=== PATIENT | male | born 1950 | race Caucasian/White ===

== ENCOUNTER 2019-05-19 06:38 | Day surgery (SDC) | payer OTHER ==
[~2019-05-19] VITALS: Ht 177.8 cm; Wt 97.5 kg
[~2019-05-19 06:38] MED LIST: ASPIRIN EC325 M1 PO; CARBAMAZEPINE300 MG PO; COSOPT OCUMETER10 M1 OPHTHALMIC; DULOXETINE HCL30 MG PO; LOSARTAN POTASS50 MG PO; LOVASTATIN40 MG PO; OMEPRAZOLE40 MG PO; PHENYTOIN SODI100 M3 PO; PRED FORTE 1% EY5 M1 OPHTHALMIC
[2019-05-19 07:19] VITALS: BP 164/89
--- NOTE | 2019-05-20 06:21 | O ---
[facility] [place] [address] OPERATIVE REPORT Name: RICH SANTANA Room #: 150-2 [facility] M.R.#: [id number] Admission: 05/19/19 Attend Phys: Phong Gipson MD Discharge: Date of : 50 Report #: [id number] THIS REPORT FOR: cc: Tatiana Lynch MD, Lin W. MD White, William L. 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 PROCEDURE: Excision of recurrent squamous cell carcinoma of right upper lid, right lower lid, right medial canthus, and right orbit with musculocutaneous flap repair of the right lower lid based on the temporalis muscle, myocutaneous flap repair of the right upper lid, right medial canthopexy, and full-thickness skin graft from left upper lid to right medial canthus. SURGEON: Phong Gipson MD SNAKE CHARMER: None. ANESTHESIA: General. COMPLICATIONS: None. 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 He presents today for excision of the tumor with frozen sections and subsequent repair of that ensuing defect. Informed consent was obtained to include but not limited to the potential risks for loss of vision, bleeding, infection, failure to improve the problem, need for additional treatment or surgery, and the very real understanding that in all likelihood, this disease process will eventually in loss of his eye and all of his orbital soft tissue. With that understanding, he agreed to proceed. [address] [address] OPERATIVE REPORT Name: RICH SANTANA Room #: 150-2 [facility] M.R.#: [id number] Admission: 05/19/19 Attend Phys: Phong Gipson MD Discharge: Date of : 50 Report #: [id number] DESCRIPTION OF PROCEDURE: The patient was taken to the operating room where general anesthesia was administered. The right medial canthal area including the right upper lid, the right lower lid, the right medial canthus, and the right lateral canthus in addition to the right infratemporal fossa were anesthetized with Xylocaine with epinephrine mixed with Marcaine and Wydase. The patient was subsequently prepped and draped in the usual sterile fashion. A fine-tip skin marking pen was then utilized to outline the tumor margins around the medial right upper lid around the medial canthus and on to the medial right lower lid. Incisions were then made perpendicularly across the right upper lid and the right lower lid and drawn to the arcus marginalis. The dissection was then carried down on to the periosteum medial cutting into the lacrimal apparatus, which was ultimately sacrificed. This tissue was then placed on the back table to use as the main tumor specimen. An additional section of the stump now with the upper lid and the right lower lid were taken as separate specimens. An additional deeper tissue was taken in the medial orbit extending down to the area of the medial rectus muscle posterior to the lacrimal apparatus. Hemostasis was then achieved. The pathologist snapped those frozen specimens and found that the right upper lid and the right lower lid were still positive. She felt that the orbital tissue while not completely normal, was not neoplastic. An additional section of the medial right upper lid and the right lower lid were then taken. These were labeled for the pathologist, which she took and froze. She analyzed these specimens and found that the margin appeared to be clear of invasive cancer. Attention was then turned to repair of the ensuing defect. Most of the right lower lid was gone and over half of the right upper lid was gone. The reconstructive options were contemplated. An incision was then made at the lateral canthus not including the canthus down to the periosteum and a canthal release, releasing both the upper lid and the lower lid, was accomplished. Hemostasis was achieved through this area. The lower lid then had considerable more mobility for a flap to be undertaken in the right upper lid could also be drawn out from a separate flap. A larger relaxing incision was then made superotemporally for the lower lid that was drawn back into the infratemporal fossa. The lacrimal gland was present in this dissection and was dissected free from the underlying flap. The temporalis muscle was for the flap to be advanced and hemostasis re-achieved. The flap was then advanced into its bed in the lower lid, but not secured yet. Two separate 5-0 Vicryl sutures were used to accomplish a medial canthopexy securing the upper and lower lids. These sutures were passed in a double-arm mattress fashion to the deepest most tissue present in the medial right orbit. [facility] [address] [place] [address] OPERATIVE REPORT Name: RICH SANTANA Room #: 150-2 [facility]#: [id number] Admission: 05/19/19 Attend Phys: Phong Gipson MD Discharge: Date of : 50 Report #: [id number] The right lower lid musculocutaneous flap then was advanced and secured with the interrupted 5-0 Vicryl sutures deep. The lateral incision was then closed with interrupted Vicryl sutures deep and then 6-0 plain gut sutures superficially extending back towards the ear. A preplaced 5-0 double-arm Vicryl suture was left to accomplish a canthopexy with the right upper lid. A separate myocutaneous flap was then developed superotemporally drawn down based on the brow. Relaxing incisions made and it was drawn into its position. The 5-0 Vicryl sutures were then secured to accomplish the medial canthopexy following which the myocutaneous flap was secured with interrupted buried Vicryl sutures deep and then 6-0 plain gut sutures more superficially. This left a defect in the right medial canthus. A fine-tip skin marking pen was then utilized to outline some redundant skin in the lateral most portion of the left upper lid that could be used as a skin graft. The incisions were then made with a Claudia scissor and a full-thickness skin graft harvested. It was defatted. That donor site was closed with interrupted 6-0 chromic sutures and 6-0 plain gut sutures after the field was dried. The full-thickness skin graft was then defatted and secured into its bed in the right medial canthus initially with a double-arm mattress 7-0 Vicryl suture drawing it into the deepest most portion of the area of the defect. The margins were then closed with interrupted 7-0 Vicryl sutures and 6-0 plain gut sutures. The wounds were then cleaned and dressed with multiple Telfa pad pieces in the medial canthus to hold the full-thickness skin graft flat. An eye pad was then placed on top of Telfa pads, which were secured with silk tape and Mastisol. Erythromycin ointment had been applied to all the incisions prior to placement of the dressing. The patient was subsequently transported to the recovery area having tolerated the procedure well with no anesthetic or operative complications being noted. <ELECTRONICALLY SIGNED> By: Phong Gipson MD 05/20/19 0621 [id number] Phong Gipson MD /nt
--- NOTE | 2019-05-20 17:07 | PATH ---
[facility] [place] [address] PATHOLOGY RPT PROCEDURE Name: RICH SANTANA Room #: 150-2 [facility] M.R.#: [id number] Admission: 05/19/19 Date of : 50 Discharge: Report #: [id number] Path Case #: [id number] [facility] Accession Number: [id number] . 01 Material submitted: . PART A: lid - LATERAL RIGHT UPPER LID NEW MARGIN. Modifiers: right, lateral PART B: lid - LATERAL RIGHT LOWER LID NEW MARGIN. Modifiers: lateral, right PART C: canthus - DEEP MEDIAL CANTHUS MARGIN. Modifiers: medial PART D: lid - LATERAL RIGHT UPPER LID ADDITIONAL MARGIN. Modifiers: lateral, right PART E: lid - LATERAL RIGHT LOWER LID ADDITIONAL MARGIN. Modifiers: lateral, right PART F: lid - RIGHT UPPER LID SQUAMOUS CELL CARCINOMA MAIN BODY. Modifiers: right, upper . 02 Frozen section diagnosis: . FROZEN SECTION DIAGNOSIS: (by Dr. Cecilia Carson) . FSA1, Right upper lid new margin, biopsy: - POSITIVE FOR MALIGNANCY. . FSB1, Right lower lid new margin, biopsy: - POSITIVE FOR MALIGNANCY. . FSC1, Deep medial canthus, biopsy: - No definite invasive carcinoma at new margins on FS slide. . FSD1, Right upper lid new margin additional, biopsy: - No definite invasive carcinoma at new margin on FS slide. . FSE1, Right lower lid new margin additional, biopsy: - No definite invasive carcinoma at new margin on FS slide. . These findings are discussed with Dr. Phong Gipson and a written report is placed in the patient's chart. (IUV:pit 05/19/2019) . FROZEN SECTION GROSS DESCRIPTION: A. The specimen is received fresh from the OR labeled with the patient's name and "right upper lid new margin up", consists of a pink-caraballo tissue of skin and conjunctive measuring approximately 1.0 cm. Submitted enface for frozen section as FSA1, subsequently submitted for permanent sections as A1. . B. The specimen is received fresh from the OR labeled with the patient's name and "right lower lid new margin up", consists of a 1.0 cm fragment of pink-caraballo tissue with skin and conjunctive. Submitted enface for frozen section as FSB1, subsequently submitted for permanent sections B1. [address] [address] PATHOLOGY RPT PROCEDURE Name: RICH SANTANA Room #: 150-2 [facility] M..#: [id number] Admission: 05/19/19 Date of : 50 Discharge: Report #: [id number] Path Case #: [id number] . C. The specimen is received fresh from the OR labeled with the patient's name and "deep medial canthus", consists of a 0.5 cm segment of pink-caraballo tissue. Submitted enface for frozen section as FSC1, subsequently submitted for permanent sections C1. . D. The specimen is received fresh from the OR labeled with the patient's name and "right upper lid second new margin (additional)", consists of a 0.6 cm segment of pink-caraballo tissue. The new margin (up according to the surgeon) is submitted for frozen section enface as FSD1, subsequently submitted for permanent sections D1. . E. The specimen is received fresh from the OR labeled with the patient's name and "right lower lid new margin (additional)", consists of a pink-caraballo fragment of tissue measuring 0.8 cm. Submitted enface for frozen section (identified as up per Dr. Gipson) as FSE1, subsequently submitted for permanent sections as E1. . (IUV:pit 05/19/2019) . Frozen section performed at [facility], [address], [place] [address]. IZV/QTP . 02 Diagnosis: A. Skin, lateral right upper lid new margin, biopsy: - POSITIVE FOR MALIGNANCY; FOCAL INVASIVE SQUAMOUS CELL CARCINOMA PRESENT ALONG WITH SEVERE SQUAMOUS DYSPLASIA. . B. Skin, lateral right lower lid new margin, biopsy: - POSITIVE FOR MALIGNANCY; FOCAL INVASIVE SQUAMOUS CELL CARCINOMA PRESENT ALONG WITH SEVERE SQUAMOUS DYSPLASIA. . C. Skin, deep medial canthus margin, biopsy: - Negative for malignancy. . D. Skin, lateral right upper lid additional margin, biopsy: - Negative for invasive squamous cell carcinoma on frozen section slide (please see comment). - POSITIVE FOR MILD TO MODERATE SQUAMOUS DYSPLASIA. . E. Skin, lateral right lower lid additional margin, biopsy: - Negative for invasive squamous cell carcinoma on frozen section slide (please see comment). - POSITIVE FOR MILD TO MODERATE SQUAMOUS DYSPLASIA. . F. Skin, right upper lid squamous cell carcinoma main body, excision: [facility] [address] [place] [address] PATHOLOGY RPT PROCEDURE Name: RICH SANTANA Room #: 150-2 [facility]..#: [id number] Admission: 05/19/19 Date of : 50 Discharge: Report #: [id number] Path Case #: [id number] - INVASIVE MODERATELY DIFFERENTIATED SQUAMOUS CELL CARCINOMA. - Deep margin free of malignancy. - FOCAL INVASION INTO ADJACENT SKELETAL MUSCLE. - PERINEURAL INVASION PRESENT. (IUV:veronica; 05/20/2019) S 05/20/2019 1251 Local . 02 Comment: Examination shows a deeply infiltrative squamous cell carcinoma invading into the skeletal muscle as well as showing focal perineural invasion. The main resection specimen (part F, right upper lid main body) shows an invasive squamous cell carcinoma which appears free of involvement at the side margins as well as the deep margin. The "lateral right upper lid new margin" and "lateral right lower lid new margin" both show invasive squamous cell carcinoma focally present implying either a widely infiltrative squamous cell carcinoma or a new secondary lesion. The overlying squamous epithelium shows severe squamous dysplasia within these sections. The "lateral right upper lid additional margin" and the "lateral right lower lid additional margin" both show mild to moderate squamous dysplasia in scattered areas. The frozen section slides (enface margins) are free of invasive squamous cell carcinoma; however, the deeper sections (older margins) show focal squamous cell carcinoma present. This again, implies either a secondary lesion or a widely infiltrative squamous cell carcinoma. The case was discussed with Dr. Phong Gipson at approximately 11:30 a.m. on 05/20/2019. (IUV:veronica; 05/20/2019) . 02 Electronically signed: . Cecilia Carson MD, Pathologist NPI- [id number] . 01 Gross description: . A-E PLEASE SEE FROZEN SECTION FOR GROSS DESCRIPTION . F. The specimen is received fresh from the OR labeled with the patient's name and "right lower squamous cell carcinoma", consists of an irregularly shaped specimen measuring approximately 1.5 cm in length. The specimen is 1.0 cm towards the inferior half and 0.5 cm in breadth towards the upper half. The specimen is inked as follows: The medial margin is inked black including the deep margin. The right upper lid margin towards the superior end of the specimen is inked green and the right lower lid margin towards the inferior half of the specimen is inked blue. At this point the specimen is serially sectioned and submitted in entirety for permanent sections only in F1 and F2. . (IUV:pit 05/19/2019) /QTP 05/19/2019 [address] [place] [address] PATHOLOGY RPT PROCEDURE Name: RICH SANTANA Room #: 150-2 [facility].#: [id number] Admission: 05/19/19 Date of : 50 Discharge: Report #: [id number] Path Case #: [id number] . 02 Pathologist provided ICD-10: C44.1221, C44.1222, L98.8 . 02 CPT . 017119, 946357, 977747, 162583, 875723, 608253, 599149, 003551, 754352, 597254, 146815 Specimen Comment: A courtesy copy of this report has been sent to [phone] Specimen Comment: Report sent to Performed at: [address], [place] [id number] MD Jeet Martin MD Phone: [phone] Performed at: [address] [id number] MD Cecilia Carson MD Phone: [phone]
== END 2019-05-19 11:15 | disposition home or self-care (01) ==
LOC: TBA 06:38 → OR 06:38 → TBA 06:56 → OR 07:27
DX: C44.1221 Squamous cell carcinoma of skin of right upper eyelid, including canthus (principal); C44.1222 Squamous cell carcinoma of skin of right lower eyelid, including canthus; L98.8 Other specified disorders of the skin and subcutaneous tissue; F32.9 Major depressive disorder, single episode, unspecified; G47.30 Sleep apnea, unspecified; I10 Essential (primary) hypertension; E78.5 Hyperlipidemia, unspecified; Z87.891 Personal history of nicotine dependence; Z96.641 Presence of right artificial hip joint; Z98.890 Other specified postprocedural states; Z79.899 Other long term (current) drug therapy; Z79.82 Long term (current) use of aspirin
CPT/HCPCS: 50010; 50101; 50386; 50398; 51636; 56531; 62110; 62900; 64037